=== PATIENT | female | born 1995 | race Caucasian/White ===

== ENCOUNTER 2017-11-18 15:11 | Inpatient (IN) | payer OTHER ==
[~2017-11-18] VITALS: Ht 167.6 cm; Wt 59.9 kg
[~2017-11-18 15:11] MED LIST: PRENATABS FA T1 EACH
== END 2017-11-21 10:07 | disposition home or self-care (01) | DRG 778 ==
LOC: LDR 15:11
PROC: 4A1HXCZ Monitoring of Products of Conception, Cardiac Rate, External Approach (ICD-10-PCS; principal; 2017-11-18)
PROC: BY4CZZZ Ultrasonography of Second Trimester, Single Fetus (ICD-10-PCS; 2017-11-20)
DX: O60.02 Preterm labor without delivery, second trimester (principal); Z3A.26 26 weeks gestation of pregnancy

== ENCOUNTER 2018-02-08 19:03 | Outpatient (CLI) | payer OTHER | END 2018-02-08 19:44 | disposition home or self-care (01) | LOC: NST 19:03 | DX: Z34.03 Encounter for supervision of normal first pregnancy, third trimester (principal) ==

== ENCOUNTER 2018-02-11 07:13 | Inpatient (IN) | payer OTHER ==
[~2018-02-11] VITALS: Ht 167.6 cm; Wt 64.4 kg
== END 2018-02-13 14:45 | DRG 775 ==
LOC: LDR 07:13 → OB/GYN 19:25
PROC: 10E0XZZ Delivery of Products of Conception, External Approach (ICD-10-PCS; principal; 2018-02-11)
PROC: 3E033VJ Introduction of Other Hormone into Peripheral Vein, Percutaneous Approach (ICD-10-PCS; 2018-02-11)
PROC: 10907ZC Drainage of Amniotic Fluid, Therapeutic from Products of Conception, Via Natural or Artificial Opening (ICD-10-PCS; 2018-02-11)
PROC: 4A1HXCZ Monitoring of Products of Conception, Cardiac Rate, External Approach (ICD-10-PCS; 2018-02-11)
DX: O70.0 First degree perineal laceration during delivery (principal); O69.81X0 Labor and delivery complicated by cord around neck, without compression, not applicable or unspecified; Z3A.39 39 weeks gestation of pregnancy; Z37.0 Single live birth

== ENCOUNTER → 2021-06-14 | Emergency (ER) | payer OTHER | END | disposition left against medical advice (07) | LOC: ER 13:16 | DX: Z53.20 Procedure and treatment not carried out because of patient's decision for unspecified reasons (principal) ==

== ENCOUNTER 2021-06-27 18:25 | Emergency (ER) | payer OTHER ==
[~2021-06-27] VITALS: Ht 170.2 cm; Wt 61.7 kg
== END 2021-06-27 20:51 | disposition home or self-care (01) ==
LOC: ER 18:25
DX: M94.0 Chondrocostal junction syndrome [Tietze] (principal)

== ENCOUNTER 2022-11-21 09:50 | Emergency (ER) | payer OTHER ==
[~2022-11-21] VITALS: Ht 170.2 cm; Wt 58.1 kg
== END 2022-11-21 19:45 | disposition home or self-care (01) ==
LOC: ER 09:50
DX: K62.5 Hemorrhage of anus and rectum (principal)